=== PATIENT | male | born 1985 | race Caucasian/White ===

== ENCOUNTER 2018-02-21 18:37 | Emergency (ER) | payer OTHER ==
[~2018-02-21] VITALS: Ht 170.2 cm; Wt 62.6 kg
== END 2018-02-22 09:05 | disposition designated cancer center or children's hospital (05) ==
LOC: ER 18:37
DX: D49.6 Neoplasm of unspecified behavior of brain (principal); G93.6 Cerebral edema; R51 Headache; F41.8 Other specified anxiety disorders